=== PATIENT | male | born 1985 | race Two or more races ===

== ENCOUNTER → 2019-07-05 | Outpatient (CLI) | payer BC ==
--- NOTE | 2019-07-06 10:20 | RADIOLOGY REPORT (SQ) ---
EXAM DESCRIPTION: MRI LT LOWER JOINT WITHOUT COMPLETED DATE/TIME: 07/05/2019 8:39 pm REASON FOR STUDY: M25.562 PAIN IN LEFT KNEE M25.562 PAIN IN LEFT KNEE COMPARISON: None. TECHNIQUE: Leftknee images acquired and stored on PACS. Multiplanar images include fat sensitive se quences as T1, water sensitive sequences as FST2 or STIR, cartilage sensitive sequences as FSPD, and gradient echo sequences. LIMITATIONS: None. FINDINGS: JOINT AND BURSAE: Large suprapatellar knee joint effusion BONE CORTEX AND MARROW: Bone contusions posterior half of the medial and lateral tibial plateaus. No depressed osteochondral fracture. ACL: Torn, best shown on sagittal image 13 through 15. PCL: Intact. MCL: Intact. No periligamentous edema or fluid. LCL: Intact. No periligamentous edema or fluid. MEDIAL MENISCUS: No tears. No abnormal signal. LATERAL MENISCUS: Bucket-handle tear lateral meniscus, best shown on sagittal images 16-20 and thornton l images 14-20. MEDIAL COMPARTMENT: Cartilage preserved. No bone bruises or reactive marrow edema. No osteophytes. LATERAL COMPARTMENT: Cartilage preserved. No bone bruises or reactive marrow edema. No osteophytes. PATELLA: No chondromalacia. No subchondral cysts. Medial and lateral retinacula intact. EXTENSOR MECHANISM: Intact. Quadriceps and patella tendons normal. SOFT TISSUES: Adjacent muscles and subcutaneous tissues normal. Normal flow void in popliteal artery and vein. OTHER: No other significant finding. IMPRESSION: Torn anterior cruciate ligament Bucket-handle tear lateral meniscus Bone contusions in the posterior half of the medial and lateral tibial plateaus. TECHNICAL DOCUMENTATION: JOB ID: [id number]- All Rights Reserved Reading location - IP/workstation name: [email or web address]
== END ==
LOC: RAD 19:51
PROVIDERS: ATTEND Orthopaedic Surgery
DX: S83.512A Sprain of anterior cruciate ligament of left knee, initial encounter (principal); S83.252A Bucket-handle tear of lateral meniscus, current injury, left knee, initial encounter; X58.XXXA Exposure to other specified factors, initial encounter; M25.562 Pain in left knee

== ENCOUNTER 2019-08-31 09:33 | Day surgery (SDC) | payer BC, OTHER ==
[2019-08-24 09:49] LABS: ABSOLUTE BASOPHILS # (AUTO) 0.1 10^3/uL (0.0-0.2); ABSOLUTE EOSINOPHILS # (AUTO) 0.1 10^3/uL (0.0-0.6); ABSOLUTE LYMPHOCYTES (AUTO) 1.4 10^3/uL (0.5-4.7); ABSOLUTE MONOCYTES (AUTO) 0.6 10^3/uL (0.1-1.4); ABSOLUTE NEUT (AUTO) 4.6 10^3/uL (1.7-8.2); BASOPHILS % (AUTO) 1.1 % (0-2); EOSINOPHILS % (AUTO) 2.2 % (0-6); HEMATOCRIT 41.9 % (37.9-51.0); HEMOGLOBIN 14.3 g/dL (13.5-17.0); LYMPHOCYTES % (AUTO) 20.6 % (13-45); MEAN CORPUSCULAR HGB CONC 34.1 g/dL (32.0-36.0); MEAN CORPUSCULAR VOLUME 82 fl (80-97); MONOCYTES % (AUTO) 8.8 % (3-13); PLATELET COUNT 288 10^3/uL (150-450); RED CELL DISTRIBUTION WIDTH 12.9 % (11.5-14.0); SEGMENTED NEUTROPHILS % (AUTO) 67.3 % (42-78); TOTAL CELLS COUNTED % (AUTO) 100 %; WHITE BLOOD COUNT 6.8 10^3/uL (4.0-10.5)
--- NOTE | 2019-08-24 09:49 | RADIOLOGY REPORT (SQ) ---
EXAM DESCRIPTION: CHEST PA/LATERAL COMPLETED DATE/TIME: 08/24/2019 9:25 am REASON FOR STUDY: PRE OP COMPARISON: None. EXAM PARAMETERS: NUMBER OF VIEWS: two views TECHNIQUE: Digital Frontal and Lateral radiographic views of the chest acquired. RADIATION DOSE: NA LIMITATIONS: none FINDINGS: LUNGS AND PLEURA: No opacities, masses or pneumothorax. No pleural effusion. MEDIASTINUM AND HILAR STRUCTURES: No masses or contour abnormalities. HEART AND VASCULAR STRUCTURES: Heart normal size. No evidence for failure. BONES: No acute findings. HARDWARE: None in the chest. OTHER: No other significant finding. IMPRESSION: NO SIGNIFICANT RADIOGRAPHIC FINDING IN THE CHEST. TECHNICAL DOCUMENTATION: JOB ID: [id number] [place]- All Rights Reserved Reading location - IP/workstation name: [email or web address]
[~2019-08-31 09:33] MED LIST: ACETAMINOPHEN 325 MG TABLET PO PRN; CEFAZOLIN SODIUM 2 GM in DEXTROSE 5%-WATER 100 ML IV PRN; DEXAMETHASONE SOD PHOSPHATE INJ 4 MG/1 ML VIAL ONE; LACTATED RINGERS 1000 ML IV PRN; LIDOCAINE 0.5% INJ-PF (5 MG/ML) 50 ML SDV SUBCUT PRN; ONDANSETRON HCL INJ/PF 4 MG/2 ML SDV ONE; OXYCODONE HCL SR 10 MG TABLET PO PRN; ROCURONIUM BROMIDE INJ 50 MG/5 ML VIAL IV ONE
[2019-08-31] MEDS ORDERED: FENTANYL CITRATE INJ/PF 100 MCG/2 ML AMPUL ONE (10:00)
[2019-08-31] MEDS ORDERED: MIDAZOLAM 2 MG/2 ML INJ ONE ×2 (10:00→11:24)
[2019-08-31] MEDS ORDERED: PROPOFOL INJ 200 MG/20 ML VIAL IV ONE (10:00)
[2019-08-31] MEDS ORDERED: OXYCODONE HCL SR 10 MG TABLET PO ONE (10:46)
[2019-08-31] MEDS ORDERED: ACETAMINOPHEN 325 MG TABLET ONE (10:47)
[2019-08-31] MEDS ORDERED: FAMOTIDINE INJ/PF 20 MG/2 ML SDV IV ONE (11:19)
[2019-08-31] MEDS ORDERED: RINGERS SOLUTION,LACTATED 1,000 ML IV ONE (12:00)
[2019-08-31] MEDS ORDERED: HYDROMORPHONE HCL INJ/PF 2 MG/ML AMPULE ONE ×2 (13:01→15:41)
[2019-08-31] MEDS ORDERED: BUPIVACAINE HCL 0.5 % INJ/PF 30 ML SDV ONE (13:07)
[2019-08-31] MEDS ORDERED: TRIAMCINOLONE ACETONIDE INJ 40 MG/1 ML VIAL ONE (13:07)
[2019-08-31] MEDS ORDERED: KETOROLAC TROMETHAMINE INJ/PF 30 MG/1 ML SDV ONE (13:07)
[2019-08-31] MEDS ORDERED: LIDOCAINE 1% INJ-PF (10 MG/ML) 30 ML SDV ONE (13:07)
[2019-08-31] MEDS ORDERED: EPINEPHRINE INJ/PF 1 MG/1 ML AMPULE ONE (13:08)
[2019-08-31] MEDS ORDERED: MEPERIDINE HCL/PF INJ 25 MG/1 ML DISP.SYRIN IV PRN (14:01)
[2019-08-31] MEDS ORDERED: MORPHINE SULFATE 10 MG/ML INJ IV PRN ×2 (14:01→17:22)
[2019-08-31] MEDS ORDERED: ONDANSETRON HCL INJ/PF 4 MG/2 ML SDV IV PRN (14:01)
[2019-08-31] MEDS ORDERED: DIPHENHYDRAMINE HCL 50 MG/ML VIAL IV PRN (14:01)
[2019-08-31] MEDS ORDERED: PROMETHAZINE HCL INJ 25 MG/1 ML VIAL IV PRN (14:01)
[2019-08-31] MEDS ORDERED: FENTANYL CITRATE INJ/PF 100 MCG/2 ML AMPUL IV PRN ×3 (14:01)
[2019-08-31] MEDS ORDERED: OXYCODONE-ACETAMINOPHEN 5-325 MG TABLET PO PRN ×2 (14:01)
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
[2019-08-31] MEDS ORDERED: PROMETHAZINE HCL INJ 25 MG/1 ML VIAL ONE (17:04)
[2019-08-31] MEDS ORDERED: DIPHENHYDRAMINE HCL 25 MG CAPSULE PO PRN (17:24)
[2019-08-31] MEDS ORDERED: ONDANSETRON 4 MG TAB.RAPDIS PO PRN (17:24)
[2019-08-31] MEDS ORDERED: TRAMADOL HCL 50 MG TABLET PO PRN (18:00)
[2019-08-31] MEDS ORDERED: OXYCODONE HCL IR 5 MG TABLET PO PRN ×2 (18:00)
[2019-08-31] MEDS ORDERED: OXYCODONE HCL IR 5 MG TABLET ONE (18:03)
[2019-08-31 19:31] VITALS: BP 134/91
[2019-08-31] MEDS ORDERED: ACETAMINOPHEN 325 MG TABLET PO SCH (22:00)
--- NOTE | 2019-09-01 15:28 | EKG REPORT ---
SEVERITY:- NORMAL ECG - SINUS RHYTHM : Confirmed by: Lisa Jasso 01-Sep-2019 15:27:53
--- NOTE | 2019-09-08 10:46 | Discharge Summary ---
Discharge Summary (SDC) - Discharge Final Diagnosis: Left ACL Tear, complete Date of Surgery: 08/31/19 Discharge Date: 08/31/19 Condition: Stable Forms: ASU Anesthesia D/C Instruction, Discharge POC-Surgical Service Treatment or Instructions: NO ALCOHOL, NO DRIVING, NO IMPORTANT DECISIONS, OR ACTIVITIES THAT REQUIRE YOUR FULL ATTENTION. YOU MAY USE ICE FOR 15 - 20 MINUTES AT A TIME. YOU MAY ELEVATE YOUR LEG. GO TO THE EMERGENCY ROOM FOR DIFFICULTY BREATHING, CHEST PAIN, NUMBNESS THAT DOES NOT GO AWAY. PROTECT YOUR LEG FROM INJURY. TAKE YOUR PAIN MEDICATIONS PRESCRIBED BY YOUR PHYSICIAN. IF YOU ARE TAKING AN OPIOID PAIN MEDICATION YOU MAY USE A STOOL SOFTENER TO PREVENT CONSTIPATION. DRINK FLUIDS, EAT BALANCED DIET THAT INCLUDES FIBER, VEGETABLE, FRUIT. FOLLOW YOUR DOCTOR'S INSTRUCTION FOR CARE OF YOUR SURGICAL SITE. CALL DR. LEON'S OFFICE WITH QUESTIONS. KEEP YOUR FOLLOW-UP APPOINTMENT. REVIEW YOUR DISCHARGE PAPERWORK. IT CONTAINS IMPORTANT INFORMATION. Referrals: AURORA LEON JR, DO [ACTIVE PROVISIONAL STAFF] - 09/12/19 1:00 pm Respiratory Treatments at Home: Deep Breathing/Coughing Discharge Activity: Activity As Tolerated, No Driving, No Lifting/Push/Pulling, Slowly Increase Activity Home Care Assistance: Provided by Family Adaptive Devices on Discharge: Axillary Crutches Report the Following to Your Physician Immediately: Shortness of Breath, Increase in Pain, Fever over 101 Degrees, Unusual Bleeding, Drainage-Foul Smelling, Numbness
== END 2019-08-31 19:20 | disposition home or self-care (01) ==
LOC: OROUT 09:33
PROVIDERS: ATTEND Orthopaedic Surgery
DX: M23.612 Other spontaneous disruption of anterior cruciate ligament of left knee (principal); S83.282D Other tear of lateral meniscus, current injury, left knee, subsequent encounter; X58.XXXD Exposure to other specified factors, subsequent encounter; Z79.899 Other long term (current) drug therapy
CPT/HCPCS: 36415; 85025; 71046; 93005; 93010; 01400; 29881; 29888; J2250; J3490 ×3; J0690; J1100; J0171; J3010; J1885; J1170; J2550; J2405; J7060; J2704; S0028; 1400; J3301